=== PATIENT | female | born 1975 | race Caucasian/White ===

== ENCOUNTER 2020-12-11 19:31 | Emergency (ER) | payer BC ==
[~2020-12-11] VITALS: Ht 162.6 cm; Wt 136.1 kg
[~2020-12-11 19:31] MED LIST: ALEVE220 M1 PO; BACTRIM DS TAB1 EACH PO; BENADRYL25 MG PO; CITALOPRAM HBR40 MG PO; FLEXERIL PO; IBUPROFEN 800800 M1 PO; MEDROLDOSEPACK PO; NOHOMEMEDICATIONS; NORCO 5-325 TA1 EACH PO; NORFLEX100 MG PO; OSELB75 PO; PEPCID20 MG PO; PERCOCET 5-3251 EACH PO; PHENAZOPYRIDIN200 M2 PO; PHENERGAN 25 MG25 M1 PO; TESSALON200 MG PO; ZOFRAN ODT4 MG PO; ZOLOFT50 MG PO; ZPAK PO; ZYRTEC10 MG PO
[2020-12-11] MEDS ORDERED: BENICAR20 MG PO (19:45)
[2020-12-11] MEDS ORDERED: FLEXERIL PO (19:45)
[2020-12-11] MEDS ORDERED: PROZAC20 M1 PO (19:45)
[2020-12-11] MEDS ORDERED: ZYRTEC10 M2 PO (19:46)
[2020-12-11] MEDS ORDERED: CHLORTHALIDONE25 MG PO (19:46)
[2020-12-11 20:12] LABS: ABSOLUTE BASOPHILS 0.1 thou/uL (0.0-0.2); ABSOLUTE EOSINOPHILS 0.3 thou/uL (0.0-0.7); ABSOLUTE LYMPHOCYTES 3.3 thou/uL (0.8-5.3); ABSOLUTE MONOCYTES 0.7 thou/uL (0.0-1.2); ABSOLUTE NEUTROPHILS 5.3 thou/uL (1.6-8.1); BASOPHILS 1.1 %; EOSINOPHILS 2.7 %; HEMATOCRIT 45.9 % (37.0-47.0); MCH 28.8 pg (26.0-34.0); MCHC 32.6 g/dL (28.0-37.0); MCV 88.4 fL (80.0-100.0); MONOCYTES 7.4 %; MPV 7.4 fl. (7.2-11.1); NUCLEATED RBCS 0 /100WBC; PLATELET COUNT* 266 thou/uL (150-400); POLYS 54.8 %; RBC 5.19 mil/uL (4.20-5.00); WBC 9.7 thou/uL (4.0-11.0)
[2020-12-11 20:22] LABS: CALCIUM 8.8 mg/dL (8.5-10.1); CREATININE 0.8 mg/dL (0.6-1.3); POTASSIUM 3.5 mmol/L (3.5-5.1)
[2020-12-11 20:33] LABS: ALBUMIN 3.5 g/dL (3.4-5.0); INR 0.9; MAGNESIUM 2.2 mg/dL (1.8-2.4); PROTIME 9.8 Seconds (9.20-11.50); TOTAL BILIRUBIN 0.5 mg/dL (<0.1-1.0); TOTAL PROTEIN 7.4 g/dL (6.4-8.2)
[2020-12-11 20:47] LABS: URINE BILIRUBIN NEGATIVE (Negative); URINE BLOOD 2+ (Negative); URINE CLARITY SL CLOUDY; URINE COLOR YELLOW; URINE GLUCOSE-RANDOM NEGATIVE (Negative); URINE KETONES NEGATIVE (Negative); URINE LEUKOCYTES-REFLEX NEGATIVE (Negative); URINE NITRITE-REFLEX NEGATIVE (Negative); URINE PROTEIN NEGATIVE (Negative); URINE UROBILINOGEN 0.2 E.U./dl (0.2-1.0)
[2020-12-11 20:52] LABS: SQUAMOUS >10 Many /LPF (0-3)
[2020-12-11 20:53] LABS: BACTERIA-REFLEX >30 Many /HPF (None Seen); CASTS None Seen /LPF (None Seen); CRYSTALS None Seen /LPF (None Seen); MUCUS None Seen strn/LPF (None Seen); URINE RBC 3-10 Few /HPF (0-2); URINE WBC-REFLEX None Seen /HPF (0-5)
[2020-12-11 20:54] LABS: AMORPHOUS PHOSPHATES Moderate /LPF (None Seen)
[2020-12-11 22:28] VITALS: BP 155/98
--- NOTE | 2020-12-12 09:36 | EKG ---
[place] [address] ELECTROCARDIOGRAM REPORT Name: RONNI MAYORGA Room: [facility]#: [id number] Admission: 12/11/20 Attend Phys: Discharge: 12/11/20 Date of : 71 Date of Service: 12/11/201941 Report #: [id number] THIS REPORT FOR: //name// [facility] Test Date: 2020-12-11 Test Time: 19:42:50 Pat Name: RONNI MAYORGA Department: Room: Gender: F Echocardiologist: JOSIE : 1975 Requested By: Brii Peguero Order Number: [id number] MD: Gabe Bran Measurements Intervals [place] Rate: 77 P: 8 WV: 165 QRS: -3 QRSD: 94 T: 32 QT: 408 QTc: 462 Interpretive Statements Sinus rhythm Baseline wander in lead(s) V1 No previous ECG available for comparison Electronically Signed On 12-12-2020 9:36:44 CDT by Gabe Bran [email or web address] <ELECTRONICALLY SIGNED> By: Gabe Bran MD, [facility] 12/12/20 0936 [id number] Gabe Bran MD, [facility] /EPI
== END 2020-12-11 22:29 | disposition home or self-care (01) ==
LOC: M.ERS 19:31
PROVIDERS: Emergency Medicine
DX: I10 Essential (primary) hypertension (principal); G43.909 Migraine, unspecified, not intractable, without status migrainosus; Z98.51 Tubal ligation status; Z98.890 Other specified postprocedural states; Z79.899 Other long term (current) drug therapy; Z88.5 Allergy status to narcotic agent